=== PATIENT | male | born 1995 | race Two or more races ===

== ENCOUNTER 2016-12-04 00:55 | Emergency (ER) | payer SELFPAY ==
[~2016-12-04] VITALS: Ht 167.6 cm; Wt 63.5 kg
[2016-12-04 01:15] VITALS: BP 121/66
[2016-12-04 02:07] LABS: Basophils # (auto) 0 uL; Basophils % (auto) 0.5 % (0.0-2.0); Eosinophils # (auto) 0.2 uL; Eosinophils % (auto) 2.2 % (0.0-7.0); Hematocrit 45.5 % (41.0-53.0); Lymphocytes # (auto) 2.3 uL; Lymphocytes % (auto) 26.5 % (10.0-50.0); Mean Corpuscular Hemoglobin 29.9 pg (28.0-32.0); Mean Corpuscular Volume 90.6 fL (80.0-100.0); Mean Platelet Volume 7.4 fL (7.4-10.4); Monocytes # (auto) 0.5 uL; Monocytes % (auto) 5.9 % (0.0-12.0); Neutrophils # (auto) 5.5 uL; Neutrophils % (auto) 64.9 % (37.0-80.0); Platelet Count (auto) 354 10^3/uL (140-450); Red Cell Distribution Width 12.6 % (11.6-16.0); White Blood Cell 8.5 10^3/uL (4.4-10.8)
[2016-12-04 02:26] LABS: Albumin 3.8 g/dL (3.4-5.0); BUN/Creatinine Ratio 11.7; Calcium 8.3 mg/dL (8.5-10.1); Potassium 4.2 mmol/L (3.5-5.1)
[2016-12-04 02:30] LABS: Bilirubin, Total 0.6 mg/dL (0.2-1.0); Total Protein 7.7 g/dL (6.4-8.2)
== END 2016-12-04 09:35 | disposition home or self-care (01) ==
LOC: ER 01:01
DX: S16.1XXA Strain of muscle, fascia and tendon at neck level, initial encounter (principal); K64.4 Residual hemorrhoidal skin tags; K21.9 Gastro-esophageal reflux disease without esophagitis; X58.XXXA Exposure to other specified factors, initial encounter; Y93.89 Activity, other specified; Y99.8 Other external cause status; Y92.89 Other specified places as the place of occurrence of the external cause
CPT/HCPCS: 36415; 80053; 81002; 85025

== ENCOUNTER 2017-07-12 19:04 | Emergency (ER) | payer MEDICAID ==
[~2017-07-12] VITALS: Ht 167.6 cm; Wt 63.5 kg
[2017-07-12 19:18] VITALS: BP 112/73
[2017-07-12] MEDS ORDERED: ACETAMINOPHEN/CODEINE#3 (300/30mg) TAB PO ONE (20:30)
[2017-07-12] MEDS ORDERED: CLINDAMYCIN 600 MG/4 ML VL IM ONE (20:30)
[2017-07-12 20:41] LABS: Basophils # (auto) 0.1 uL; Basophils % (auto) 0.6 % (0.0-2.0); CONDITION Y; Eosinophils # (auto) 0 uL; Hematocrit 41.2 % (41.0-53.0); Hemoglobin 14.4 g/dL (13.5-17.5); Lymphocytes # (auto) 1.6 uL; Lymphocytes % (auto) 9.9 % (10.0-50.0); Mean Corpuscular Hemoglobin 31.3 pg (28.0-32.0); Mean Corpuscular Hgb Conc. 34.9 g/dL (32.0-36.0); Mean Corpuscular Volume 89.6 fL (80.0-100.0); Mean Platelet Volume 7.8 fL (7.4-10.4); Monocytes # (auto) 1.1 uL; Monocytes % (auto) 7.1 % (0.0-12.0); Neutrophils # (auto) 13.3 uL; Neutrophils % (auto) 82.4 % (37.0-80.0); Platelet Count (auto) 317 10^3/uL (140-450); Red Cell Distribution Width 12.5 % (11.6-16.0); White Blood Cell 16.1 10^3/uL (4.4-10.8)
[2017-07-12 20:59] LABS: Albumin 3.7 g/dL (3.4-5.0); BUN/Creatinine Ratio 11.2; Calcium 8.7 mg/dL (8.5-10.1); Potassium 3.7 mmol/L (3.5-5.1)
[2017-07-12] MEDS ORDERED: SODIUM CHLORIDE 0.9% 1,000 ML IV ONE (21:00)
[2017-07-12 21:02] LABS: Bilirubin, Total 1.2 mg/dL (0.2-1.0); Total Protein 7.7 g/dL (6.4-8.2)
[2017-07-12] MEDS ORDERED: IOHEXOL 300 MG/ML 100ML BOTTLE IJ ONE (21:19)
== END 2017-07-12 22:36 | disposition home or self-care (01) ==
LOC: ER 19:08
DX: J36 Peritonsillar abscess (principal); R50.9 Fever, unspecified; K21.9 Gastro-esophageal reflux disease without esophagitis
CPT/HCPCS: 36415; 70491; 80053; 85025; 96360; 99285; J7030; Q9967

== ENCOUNTER 2018-01-01 14:16 | Emergency (ER) | payer SELFPAY ==
[~2018-01-01] VITALS: Ht 167.6 cm; Wt 68.0 kg
[2018-01-01 14:33] VITALS: BP 119/72
== END 2018-01-01 17:58 | disposition home or self-care (01) ==
LOC: ER 14:16
DX: S20.212A Contusion of left front wall of thorax, initial encounter (principal); S00.81XA Abrasion of other part of head, initial encounter; K21.9 Gastro-esophageal reflux disease without esophagitis; F12.10 Cannabis abuse, uncomplicated; X58.XXXA Exposure to other specified factors, initial encounter; Y93.89 Activity, other specified; Y99.8 Other external cause status; Y92.89 Other specified places as the place of occurrence of the external cause
CPT/HCPCS: 71101

== ENCOUNTER 2020-07-07 20:25 | Emergency (ER) | payer MEDICAID ==
[~2020-07-07] VITALS: Ht 167.6 cm; Wt 68.0 kg
[2020-07-07 21:55] VITALS: BP 115/66
== END 2020-07-07 23:21 | disposition home or self-care (01) ==
LOC: ER 20:25
DX: S83.92XA Sprain of unspecified site of left knee, initial encounter (principal); S93.402A Sprain of unspecified ligament of left ankle, initial encounter; S43.402A Unspecified sprain of left shoulder joint, initial encounter; S93.602A Unspecified sprain of left foot, initial encounter; K21.9 Gastro-esophageal reflux disease without esophagitis; V86.59XA Driver of other special all-terrain or other off-road motor vehicle injured in nontraffic accident, initial encounter; Y93.55 Activity, bike riding; Y92.89 Other specified places as the place of occurrence of the external cause; Y99.8 Other external cause status
CPT/HCPCS: 71046; 73030; 73590; 73600; 73630

== ENCOUNTER 2023-08-21 04:21 | Emergency (ER) | payer MEDICAID ==
[~2023-08-21] VITALS: Ht 167.6 cm; Wt 68.2 kg
[2023-08-21 04:49] VITALS: BP 130/89; PULSE 73; RESP 18; O2SAT 98
[2023-08-21] MEDS ORDERED: IBUP-1456 PO (05:22)
[2023-08-21] MEDS ORDERED: AMOX500T92 PO (05:22)
[2023-08-21] MEDS ORDERED: cefTRIAXone SOD 1,000 MG VL IM ONE (05:30)
[2023-08-21] MEDS ORDERED: KETOROLAC TROMETH 60MG/2ML VIAL IM ONE (05:30)
== END 2023-08-21 05:36 | disposition home or self-care (01) ==
LOC: ER 04:21
DX: K02.9 Dental caries, unspecified (principal); F17.210 Nicotine dependence, cigarettes, uncomplicated; Z59.00 Homelessness unspecified; Z79.1 Long term (current) use of non-steroidal anti-inflammatories (NSAID)
CPT/HCPCS: 96372; 99284; J0696; J1885